=== PATIENT | male | born 1980 | race Caucasian/White ===

== ENCOUNTER → 2016-06-29 | Outpatient (CLI) | payer BC ==
--- NOTE | 2016-06-29 15:46 | CR ---
EXAMINATION: Right tibia and fibula HISTORY: Fracture COMPARISON: 05/20/2016 TECHNIQUE: 2 views FINDINGS/IMPRESSION: An intramedullary jarrod is noted fixating a distal tibia fracture, unchanged in p osition. There is also a stable mildly comminuted mid fibular fracture noted.
== END ==
LOC: MW.CHORTHO 07:47
PROVIDERS: ATTEND Orthopaedic Surgery
DX: S82.301A Unspecified fracture of lower end of right tibia, initial encounter for closed fracture (principal); S82.401A Unspecified fracture of shaft of right fibula, initial encounter for closed fracture; Z96.7 Presence of other bone and tendon implants
CPT/HCPCS: 73590-26-RT; 73590-RT

== ENCOUNTER → 2016-08-12 | Outpatient (CLI) | payer BC ==
--- NOTE | 2016-08-12 12:51 | CR ---
EXAMINATION: Right tibia and fibula HISTORY: Post procedural states COMPARISON: 06/29/2016 TECHNIQUE: 2 views FINDINGS/IMPRESSION: There is a healing distal tibial fracture secured by an intramedullary jarrod. The re is also a healing mildly comminuted nondisplaced mid fibular fracture identified. Overall the oss eous structures appear stable.
== END ==
LOC: MW.CHORTHO 07:34
PROVIDERS: ATTEND Orthopaedic Surgery
DX: Z98.890 Other specified postprocedural states (principal); S82.301D Unspecified fracture of lower end of right tibia, subsequent encounter for closed fracture with routine healing; S82.454D Nondisplaced comminuted fracture of shaft of right fibula, subsequent encounter for closed fracture with routine healing
CPT/HCPCS: 73590-26-RT; 73590-RT

== ENCOUNTER 2016-11-10 06:18 | Day surgery (SDC) | payer BC ==
[~2016-11-10 06:18] MED LIST: Lactated Ringers 1,000 ML IV SCH
[2016-11-10] MEDS ORDERED: Ondansetron 4 MG/2 ML SDV ONE (07:09)
[2016-11-10] MEDS ORDERED: Lidocaine 2% 5 ML SDV ONE (07:09)
[2016-11-10] MEDS ORDERED: Propofol 200 MG/20 ML SDV ONE (07:09)
[2016-11-10] MEDS ORDERED: fentaNYL 100 MCG/2 ML SDV ONE (07:09)
[2016-11-10] MEDS ORDERED: Midazolam 1 MG/ML 2 ML SDV ONE (07:10)
[2016-11-10] MEDS ORDERED: Bupivacaine 0.5% 10 ML SDV ONE (07:17)
[2016-11-10] MEDS ORDERED: Lidocaine 1% 20 ML MDV ONE (07:17)
--- NOTE | 2016-11-10 07:44 | PCM.PREANE ---
Preanesthetic Assessment - Anesthesia/Transfusion/Family Hx Anesthesia History: Prior Anesthesia Without Reaction Transfusion History: No Prior Transfusion(s) - Review of Systems General: No Symptoms Pulmonary: No Symptoms Cardiovascular: No Symptoms Gastrointestinal: No Symptoms Neurological: No Symptoms Other: Reports: None - Physical Assessment NPO Status Date: 11/09/16 NPO Status Time: 22:00 O2 Sat by Pulse Oximetry: 96 Respiratory Rate: 16 Vital Signs: Last Vital Signs Temp 96.8 F 11/10/16 06:58 Pulse 56 L 11/10/16 06:58 Resp 16 11/10/16 06:58 BP 127/78 11/10/16 06:58 Pulse Ox 96 11/10/16 06:58 Height: 5 ft 10 in Weight: 215 lb ASA Class: 1 Mental Status: Alert & Oriented x3 Airway Class: Mallampati = 2 Dentition: Reports: Normal Dentition Thyro-Mental Finger Breadths: 3 Mouth Opening Finger Breadths: 3 ROM/Head Extension: Full Lungs: Clear to Auscultation, Normal Respiratory Effort - Allergies Allergies/Adverse Reactions: Allergies Allergy/AdvReac Type Severity Reaction Status Date / Time No Known Allergies Allergy Verified 04/05/16 19:08 - Blood Blood Available: No Product(s) Available: None - Anesthesia Plan Free Text/Narrative:: GLMA - Acknowledgements Anesthesia Type Planned: General Anesthesia Pt an Appropriate Candidate for the Planned Anesthesia: Yes Alternatives and Risks of Anesthesia Discussed w Pt/Guardian: Yes Pt/Guardian Understands and Agrees with Anesthesia Plan: Yes PreAnesthesia Questionnaire - Past Health History Medical/Surgical History: Denies Medical/Surgical History Cardiovascular History: Reports: None Respiratory History: Reports: Other (See Below) Other Respiratory History: pneumonia 2015 Gastrointestinal History: Reports: GERD (controlled on medication) Musculoskeletal History: Reports: Fracture Other Musculoskeletal History: fx rt tib fib Psychiatric History: Reports: Anxiety - Infectious Disease History Infectious Disease History: Reports: Chicken Pox, Measles, Mumps - Past Surgical History Head Surgeries/Procedures: Reports: None HEENT Surgical History: Reports: Tonsillectomy Respiratory Surgical History: Reports: None Musculoskeletal Surgical History: Reports: Arthroscopic Knee, Shoulder Surgery, Other (See Below) Other Musculoskeletal Surgeries/Procedures:: right knee arthroscopic surgery, right shoulder surgery for torn tendon, surgery for fx rt tib fib - SUBSTANCE USE Smoking Status *Q: Never Smoker Second Hand Smoke Exposure: No Recreational Drug Use History: Yes Recreational Drug Type: - HOME MEDS Home Medications: Home Meds Omeprazole Magnesium [Prilosec Otc] 20 mg PO DAILY 04/05/16 [History] - CURRENT (IN HOUSE) MEDS Current Meds: Current Medications Hydrocodone Bitart/Acetaminophen ([place] 325-5 Mg) 1 - 2 tab PO Q4H PRN PRN Reason: Pain Lactated Ringer's (Ringers, Lactated) 1,000 mls @ 100 mls/hr IV ASDIRECTED [facility] Last Admin: 11/10/16 06:39 Dose: 100 mls/hr Cefazolin Sodium/Dextrose 2 gm (/ Premix) 50 mls @ 100 mls/hr IV ONCALL [facility] Discontinued Medications Bupivacaine HCl (Sensorcaine-Mpf 0.5%) Confirm Administered Dose 10 ml .ROUTE .STK-MED ONE Stop: 11/10/16 07:18 Fentanyl (Sublimaze) Confirm Administered Dose 100 mcg .ROUTE .STK-MED ONE Stop: 11/10/16 07:10 Lidocaine (Xylocaine-Mpf 2%) Confirm Administered Dose 5 ml .ROUTE .STK-MED ONE Stop: 11/10/16 07:10 Lidocaine HCl (Xylocaine 1%) Confirm Administered Dose 20 ml .ROUTE .STK-MED ONE Stop: 11/10/16 07:18 Midazolam HCl (Versed 1 Mg/Ml) Confirm Administered Dose 2 mg .ROUTE .STK-MED ONE Stop: 11/10/16 07:11 Ondansetron HCl (Zofran) Confirm Administered Dose 4 mg .ROUTE .STK-MED ONE Stop: 11/10/16 07:10 Propofol (Diprivan 20 Ml) Confirm Administered Dose 200 mg .ROUTE .STK-MED ONE Stop: 11/10/16 07:10
[2016-11-10] MEDS ORDERED: ceFAZolin 2 GM in Premix Bag 1 BAG IV SCH (08:00)
[2016-11-10] MEDS ORDERED: HYDROmorphone 2 MG/ML Syringe ONE (08:11)
[2016-11-10] MEDS ORDERED: Ketorolac 30 MG/ML SDV ONE (08:12)
[2016-11-10] MEDS ORDERED: Acetaminophen/HYDROcodone 325-5 MG Tab PO PRN (09:00)
--- NOTE | 2016-11-10 09:18 | PCM.OPNOTE ---
- General Post-Op/Procedure Note Date of Surgery/Procedure: 11/10/16 Operative Procedure(s): R knee arthroscopy with PMM and HWR R distal tibia Post-Op Diagnosis: R knee medial meniscus tear. R distal tibia painful retained HW Anesthesia Technique: General LMA Primary Surgeon: Emilie Whalen Marketing Regional Consultant: Rama Sanchez in mLs: 10 Condition: Good Free Text/Narrative:: #[id number]
[2016-11-10] MEDS: fentaNYL 100 MCG/2 ML SDV IVPUSH PRN ×2 (09:28→09:34)
--- NOTE | 2016-11-10 09:55 | PCM.POSTAN ---
POST ANESTHESIA ASSESSMENT - MENTAL STATUS Mental Status: Alert, Oriented - RESPIRATORY Respiratory Status: Respiratory Rate WNL, Airway Patent, O2 Saturation Stable - CARDIOVASCULAR CV Status: Pulse Rate WNL, Blood Pressure Stable - GASTROINTESTINAL GI Status: No Symptoms - POST OP HYDRATION Hydration Status: Adequate & Stable
--- NOTE | 2016-11-10 10:29 | OR ---
SURGEON: Emilie Whalen MD DATE OF PROCEDURE: 11/10/2016 PREOPERATIVE DIAGNOSES: 1. Right knee medial meniscus tear. 2. Painful retained hardware, right distal tibia. POSTOPERATIVE DIAGNOSES: 1. Right knee medial meniscus tear. 2. Painful retained hardware, right distal tibia. PROCEDURES: 1. Right knee arthroscopy with partial medial meniscectomy. 2. Hardware removal, right distal tibia x3 (deep implants). ADMINISTRATIVE SUPERVISOR: Rama Sanchez PA-C. ANESTHESIA: General. ESTIMATED BLOOD LOSS: 10 mL. COMPLICATIONS: None. DVT PROPHYLAXIS: None indicated. IMPLANTS USED: None. BRIEF HISTORY: Phong is a 36-year-old male, who has had complaint of progressive right knee pain following a right tibia fracture which was treated with intramedullary rodding of the tibia in April of 2016. He does have a history of previous right knee pain and has previously undergone a right knee arthroscopy with partial medial meniscectomy. He has also developed irritation along the distal interlocking screws on the distal tibia. Due to his lack of response to conservative treatment, I did recommend surgical intervention. Risks and goals of the procedure were discussed with the patient and were documented preoperatively. He agreed to proceed. Initially, we planned on taking out one of the distal interlocking screws, however, upon preoperative evaluation this morning he did complain of pain at all 3 distal interlocking screws sites due to their superficial location. His x-rays were reviewed which showed the distal tibia fracture to be well healed with intramedullary rodding good position. At that time, I recommended removal of all 3 distal interlocking screws. DESCRIPTION OF PROCEDURE: The patient was properly identified and brought to the operating room. He was transferred from the OR cart and placed on the operating room table in supine position. General anesthesia was administered. After adequate anesthesia was obtained, a well-padded tourniquet was applied to the right lower extremity. The right lower extremity was then prepped in standard fashion using ChloraPrep solution. It was then sterilely draped. A time-out was performed to ensure correct site and procedure. Preoperative antibiotics were given. The surgical sites had been marked preoperatively. An Esmarch was used to exsanguinate the right lower extremity and the tourniquet was inflated to 250 mmHg. A lateral portal arthrotomy was established. Blunt trocar and cannula were introduced into the suprapatellar pouch. Camera, inflow, and outflow were assembled. No significant synovitis or scarring was noted in the suprapatellar pouch. The patellofemoral joint was visualized. The patella appeared to track centrally. I then extended down the lateral and medial gutter. No loose bodies were identified. I then entered the medial compartment. A medial portal arthrotomy was established. A blunt probe was inserted. There was found to be an undersurface tear of the posterior horn of the medial meniscus. This was treated with a shaver and debrided. It was extensively probed and was found to be stable. There was some truncation of the posterior horn of the medial meniscus, presumably from his prior surgery. The medial tibial plateau articular surface appeared intact. I did note an approximately 5 mm x 5 mm area of grade 3 chondromalacia along the weightbearing surface of the lateral portion of the medial femoral condyle. Some of the cartilage appeared loose and this was treated with chondroplasty. It was again probed and the remainder of the cartilage was found to be stable. No subchondral bone was exposed. I then entered the notch. Both the ACL and PCL were visualized and probed and found to be intact. I then entered the lateral compartment. The meniscus appeared intact. It was extensively probed and found to be stable. There was a non full-thickness linear fissure along the posterior lateral aspect of the lateral tibial plateau. This was probed and found to be stable. No significant degenerative changes were noted along the lateral femoral condyle. I then re-entered the patellofemoral joint. He did have an abundant fat pad which appeared to be impinging within the patellofemoral joint. The portion of the fat pad was resected. No further impingement was noted with flexion and extension of the knee. There was a small area of chondromalacia along the central portion of the trochlear groove. This was probed and found to be intact. He also had a small area of grade 3 chondromalacia measuring less than 5 mm x 5 mm over the lateral facet of the patella. No unstable cartilage was noted. Instruments were then removed from the knee. The portal sites were closed with 3-0 nylon. Lidocaine 1% was injected along the portal tracts. We then turned our attention to the distal interlocking screws. An incision was made over the site of each of the palpable screws. The subcutaneous tissues were dissected and the screw was visualized and removed without difficulty. This was repeated 3 times. Wounds were then copiously irrigated with saline solution. The tourniquet was deflated. The distal interlocking screw incisions were closed with 3-0 nylon. Lidocaine 1% was also injected along the distal interlocking screw sites. Xeroform gauze was then placed over all the wounds and a bulky dressing was applied. He was awakened from his anesthetic and transferred back to the operating room cart. He was brought to recovery room in stable condition. All needle and sponge counts were correct. ALVARO / DEDRICK /[id number]
[2016-11-10 10:50] VITALS: BP 138/72
--- NOTE | 2016-11-10 11:58 | PCM48HPAN ---
Post Anesthesia Note - EVALUATION WITHIN 48HRS OF ANESTHETIC Vital Signs in Normal Range: Yes Patient Participated in Evaluation: Yes Respiratory Function Stable: Yes Airway Patent: Yes Cardiovascular Function Stable: Yes Hydration Status Stable: Yes Pain Control Satisfactory: Yes Nausea and Vomiting Control Satisfactory: Yes Mental Status Recovered: Yes - COMMENTS/OBSERVATIONS Free Text/Narrative:: To home with his .
--- NOTE | 2016-11-10 11:58 | CR ---
Procedural fluoroscopy 0.9 seconds of fluoroscopy time was employed for orthopedic hardware procedure. Impression: Procedural fluoroscopy as above
== END 2016-11-10 11:00 | disposition home or self-care (01) ==
LOC: MW.SDS 06:18
PROVIDERS: ATTEND Orthopaedic Surgery
DX: Z47.2 Encounter for removal of internal fixation device (principal); M23.221 Derangement of posterior horn of medial meniscus due to old tear or injury, right knee
CPT/HCPCS: 20680; 29881; 76000; A9270; J1170; J1885; J2250; J2405; J3010; J7120; 01400; 88304; J2704

== ENCOUNTER 2020-01-15 10:05 | Day surgery (SDC) | payer BC ==
[~2020-01-15 10:05] MED LIST changes: +Sodium Chloride 0.9% 10 ML SDV IV PRN; +Sodium Chloride 0.9% 10 ML Syringe FLUSH PRN; +Sodium Chloride 0.9% 2.5 ML Syringe FLUSH PRN
[2020-01-15] MEDS ORDERED: Propofol 200 MG/20 ML SDV ONE ×3 (10:22→11:09)
[2020-01-15] MEDS ORDERED: fentaNYL 100 MCG/2 ML SDV ONE ×2 (10:22→10:42)
[2020-01-15] MEDS ORDERED: Midazolam 1 MG/ML 2 ML SDV ONE ×2 (10:22→10:42)
[2020-01-15] MEDS ORDERED: Lidocaine 2% 5 ML SDV ONE ×2 (10:22→10:44)
--- NOTE | 2020-01-15 10:33 | PCM.PREANE ---
Preanesthetic Assessment - Anesthesia/Transfusion/Family Hx Anesthesia History: Prior Anesthesia Without Reaction Family History of Anesthesia Reaction: No Transfusion History: No Prior Transfusion(s) Intubation History: Unknown - Review of Systems General: No Symptoms Pulmonary: No Symptoms Cardiovascular: No Symptoms Gastrointestinal: Hematochezia, Other (GERD) Neurological: No Symptoms Other: Reports: None - Physical Assessment Height: 5 ft 10 in Weight: 99.337 kg ASA Class: 2 Mental Status: Alert & Oriented x3 Airway Class: Mallampati = 1 Dentition: Reports: Normal Dentition, Implants (x1 rt. lower (back)) Thyro-Mental Finger Breadths: 3 Mouth Opening Finger Breadths: 3 ROM/Head Extension: Full Lungs: Clear to Auscultation, Normal Respiratory Effort Cardiovascular: Regular Rate, Regular Rhythm - Allergies Allergies/Adverse Reactions: Allergies Allergy/AdvReac Type Severity Reaction Status Date / Time erythromycin base Allergy Acid Reflux Verified 01/15/20 10:23 - Blood Blood Available: No - Anesthesia Plan Pre-Op Medication Ordered: None - Acknowledgements Anesthesia Type Planned: MAC Pt an Appropriate Candidate for the Planned Anesthesia: Yes Alternatives and Risks of Anesthesia Discussed w Pt/Guardian: Yes Pt/Guardian Understands and Agrees with Anesthesia Plan: Yes PreAnesthesia Questionnaire - Past Health History Medical/Surgical History: Denies Medical/Surgical History HEENT History: Reports: None Cardiovascular History: Reports: None Respiratory History: Reports: None Gastrointestinal History: Reports: GERD Other Gastrointestinal History: alternating constipation & diarrhea Genitourinary History: Reports: None Musculoskeletal History: Reports: Fracture Other Musculoskeletal History: fx rt tib fib Neurological History: Reports: None Psychiatric History: Reports: None, Other (See Below) (h/o anxietu/depression) Endocrine/Metabolic History: Reports: Obesity/BMI 30+ (BMI 31.4) Hematologic History: Reports: None Immunologic History: Reports: None Oncologic (Cancer) History: Reports: None Dermatologic History: Reports: None - Infectious Disease History Infectious Disease History: Reports: Chicken Pox, Measles, Mumps - Past Surgical History Head Surgeries/Procedures: Reports: None HEENT Surgical History: Reports: Tonsillectomy Cardiovascular Surgical History: Reports: None Respiratory Surgical History: Reports: None GI Surgical History: Reports: None Male Surgical History: Reports: None Endocrine Surgical History: Reports: None Neurological Surgical History: Reports: None Musculoskeletal Surgical History: Reports: Arthroscopic Knee, ORIF, Shoulder Surgery, Other (See Below) Other Musculoskeletal Surgeries/Procedures:: right knee arthroscopy with meniscus repair, right shoulder surgery for torn tendon, surgery for fx rt tib fib (ORIF with later painfull hardware removal) Oncologic Surgical History: Reports: None Dermatological Surgical History: Reports: None - SUBSTANCE USE Tobacco Use Status *Q: Never Tobacco User - HOME MEDS Home Medications: Home Meds Omeprazole Magnesium [Prilosec Otc] 20 mg PO DAILY 04/05/16 [History] Hydrocortisone/Pramoxine [Proctofoam-Hc 1%-1% Foam] 1 applic RECTAL ASDIRECTED PRN 01/10/20 [History] - CURRENT (IN HOUSE) MEDS Current Meds: Current Medications Lactated Ringer's (Ringers, Lactated) 1,000 mls @ 125 mls/hr IV ASDIRECTED [facility] Sodium Chloride (Saline Flush) 10 ml FLUSH ASDIRECTED PRN PRN Reason: Keep Vein Open Sodium Chloride (Saline Flush) 2.5 ml FLUSH ASDIRECTED PRN PRN Reason: Keep Vein Open Sodium Chloride (Saline Flush) 10 ml FLUSH ASDIRECTED PRN PRN Reason: Keep Vein Open Sodium Chloride (Saline Flush) 2.5 ml FLUSH ASDIRECTED PRN PRN Reason: Keep Vein Open Sodium Chloride (Normal Saline) 10 ml IV ASDIRECTED PRN PRN Reason: IV Use Discontinued Medications Fentanyl (Sublimaze) Confirm Administered Dose 100 mcg .ROUTE .STK-MED ONE Stop: 01/15/20 10:23 Lidocaine (Xylocaine-Mpf 2%) Confirm Administered Dose 5 ml .ROUTE .STK-MED ONE Stop: 01/15/20 10:23 Midazolam HCl (Versed 1 Mg/Ml) Confirm Administered Dose 2 mg .ROUTE .STK-MED ONE Stop: 01/15/20 10:23 Propofol (Diprivan 20 Ml) Confirm Administered Dose 400 mg .ROUTE .STK-MED ONE Stop: 01/15/20 10:23
[2020-01-15] MEDS ORDERED: Glycopyrrolate 0.2 MG/ML SDV ONE (10:55)
[2020-01-15] MEDS ORDERED: Ondansetron 4 MG/2 ML SDV ONE (11:08)
--- NOTE | 2020-01-15 11:30 | PCM.OPNOTE ---
- General Post-Op/Procedure Note Date of Surgery/Procedure: 01/15/20 Operative Procedure(s): Diagnostic EGD. Diagnostic colonoscopy. Findings: Hyperplastic gastric polyp, GERD, gastric lesion, ascending colon polyp x1 and transverse colon polyp x1. Pre Op Diagnosis: Chronic GERD. Change in bowel habits. Perianal pain. Post-Op Diagnosis: Hyperplastic gastric polyp, GERD, gastric lesion, ascending colon polyp and transverse colon polyp. Anesthesia Technique: [facility] Primary Surgeon: Theodora Keen Complications: None. Condition: Stable
--- NOTE | 2020-01-15 11:50 | PCM.POSTAN ---
POST ANESTHESIA ASSESSMENT - MENTAL STATUS Mental Status: Alert, Oriented - VITAL SIGNS Vital Signs: Last Vital Signs Temp 37 C 01/15/20 11:27 Pulse 59 L 01/15/20 11:47 Resp 16 01/15/20 11:47 BP 118/65 01/15/20 11:47 Pulse Ox 93 L 01/15/20 11:47 - RESPIRATORY Respiratory Status: Respiratory Rate WNL, Airway Patent, O2 Saturation Stable - CARDIOVASCULAR CV Status: Pulse Rate WNL, Blood Pressure Stable - GASTROINTESTINAL GI Status: No Symptoms - PAIN Pain Score: 0 - POST OP HYDRATION Hydration Status: Adequate & Stable - OBSERVATIONS Free Text/Narrative:: No anesthesia problems
--- NOTE | 2020-01-15 12:18 | PCM48HPAN ---
Post Anesthesia Note - EVALUATION WITHIN 48HRS OF ANESTHETIC Vital Signs in Normal Range: Yes Patient Participated in Evaluation: Yes Respiratory Function Stable: Yes Airway Patent: Yes Cardiovascular Function Stable: Yes Hydration Status Stable: Yes Pain Control Satisfactory: Yes Nausea and Vomiting Control Satisfactory: Yes Mental Status Recovered: Yes Vital Signs: Last Vital Signs Temp 37 C 01/15/20 11:27 Pulse 59 L 01/15/20 11:47 Resp 16 01/15/20 11:47 BP 118/65 01/15/20 11:47 Pulse Ox 93 L 01/15/20 11:47 - COMMENTS/OBSERVATIONS Free Text/Narrative:: No anesthesia problems
[2020-01-15 13:51] VITALS: BP 126/75; PULSE 53
--- NOTE | 2020-01-15 18:29 | OR ---
SURGEON: THEODORA KEEN MD DATE OF PROCEDURE: 01/15/2020 PREOPERATIVE DIAGNOSES: Change in bowel habits, chronic gastroesophageal reflux disease, perianal pain. POSTOPERATIVE DIAGNOSES: 1. Hyperplastic gastric polyp. 2. Gastric lesion. 3. Gastroesophageal reflux disease. 4. Ascending colon polyp. 5. Transverse colon polyp. PROCEDURE PERFORMED: Diagnostic esophagogastroduodenoscopy and colonoscopy. PRIMARY SURGEON: Theodora Keen MD ANESTHESIA: MAC. INSTRUMENT USED: Olympus endoscope and colonoscope. EXTENT OF EXAM: To the second portion of duodenum, to the cecum. PREPARATION: Good. LIMITATIONS: None. INDICATIONS FOR EXAMINATION: The patient is a 39-year-old male who presented to clinic with the main complaint of perianal pain. Upon further questioning, the patient also had problems with chronic GERD as well as changes in his bowel habits. The decision was made to proceed with diagnostic EGD and colonoscopy. I explained the procedure, expected perioperative course, and risks. He verbalized understanding and wishes to proceed. PROCEDURE IN DETAIL: The patient was brought into the endoscopy suite and placed in the left lateral decubitus position. A time-out was completed verifying the patient's name, age, date of , allergies, and procedure to be performed. A bite block was placed in the patient's mouth. Monitored anesthesia care was induced and continuous oxygen was provided via nasal cannula throughout the procedure. After adequate sedation was achieved, a well-lubricated endoscope was placed in the patient's mouth and advanced under direct visualization to the level of the second portion of duodenum. This appeared normal and a photograph was taken. The scope was then fully withdrawn while examining the color, texture, anatomy, and integrity of the mucosa of the upper GI tract. The duodenal mucosa appeared normal. A biopsy was taken of the duodenal bulb and sent to pathology. The scope was brought into the stomach and a photograph was taken of the pylorus and GE junction. The patient appeared to have a small diverticulum or fold of the gastric mucosa close to the pylorus. Multiple photographs of this were taken. The GE junction appeared normal. The gastric mucosa showed no signs of inflammation or gross ulceration. The patient did have some scattered hyperplastic polyps in the body of the stomach. Biopsies were taken of the gastric antrum, body, and fundus and sent for histologic review and H. pylori testing. The scope was brought into the distal esophagus and a photograph of the Z-line was taken. The Z-line appeared slightly irregular. The patient refluxed gastric contents actively during this portion of the procedure. A biopsy was taken 1 cm above the Z-line and sent to pathology for histologic review. The remainder of the esophagus appeared normal. The scope was removed and this portion of procedure terminated. A digital rectal exam was performed. This exam was within normal limits. A well-lubricated colonoscope was inserted in the rectum and advanced under direct visualization to the level of the cecum. The cecum was identified by both visual and anatomic landmarks. A photograph was taken of the cecal cap. The scope was then fully withdrawn while examining the color, texture, anatomy, and integrity of the mucosa from the cecum to the anal canal. The terminal ileum appeared normal with no evidence of inflammation. In the midportion of the ascending colon, the patient was noted to have a small sessile polyp. This was removed in a piecemeal fashion using cold biopsy forceps. A similar-appearing polyp was found in the mid transverse colon. It was removed with cold biopsy forceps and sent to pathology, labeled as transverse colon polyp. The remainder of the colon appeared normal. The scope was brought into the rectum and retroflexed to allow visualization of the anal canal opening. This appeared normal and a photograph was taken. The scope was then straightened out and fully withdrawn. The cecum to anus time was greater than 6 minutes. I closely inspected the anoderm and the area of previous excoriation along the buttocks crease. The patient had a barrier cream over the area and the excoriation appeared to be resolved. The patient was awoken and taken to PACU in stable condition. All counts were complete and correct at the end of the case. ENDOSCOPIC DIAGNOSES: 1. Hyperplastic gastric polyp. 2. Gastric lesion. 3. Gastroesophageal reflux disease. 4. Ascending colon polyp. 5. Transverse colon polyp. RECOMMENDATIONS: Follow up in clinic in 2 weeks. ALIN TSE /[id number]
== END 2020-01-15 12:25 | disposition home or self-care (01) ==
LOC: MW.SDS 10:05
PROVIDERS: ATTEND Surgery
DX: D12.2 Benign neoplasm of ascending colon (principal); D12.3 Benign neoplasm of transverse colon; K21.9 Gastro-esophageal reflux disease without esophagitis; K31.7 Polyp of stomach and duodenum; L29.0 Pruritus ani; L98.8 Other specified disorders of the skin and subcutaneous tissue; E66.9 Obesity, unspecified; Z88.1 Allergy status to other antibiotic agents; Z68.31 Body mass index [BMI] 31.0-31.9, adult; Z79.899 Other long term (current) drug therapy; Z98.890 Other specified postprocedural states
CPT/HCPCS: 43239; 45380; 88305; 88312; J2001; J2250; J2405; J2704; J3010; J3490; J7120

== ENCOUNTER 2021-01-27 11:36 | Day surgery (SDC) | payer BC, MEDICAID ==
--- NOTE | 2021-01-27 12:34 | PCM.PREANE ---
Preanesthetic Assessment - Procedure Proposed Procedure: Colonoscopy - Anesthesia/Transfusion/Family Hx Anesthesia History: Prior Anesthesia Without Reaction Family History of Anesthesia Reaction: No Transfusion History: No Prior Transfusion(s) Intubation History: Unknown - Review of Systems General: No Symptoms Pulmonary: No Symptoms Cardiovascular: No Symptoms Gastrointestinal: No Symptoms (GERD well controlled) Neurological: No Symptoms Other: Reports: None - Physical Assessment NPO Status Date: 01/25/21 NPO Status Time: 21:00 (Solids, >8 hr Liq) Vital Signs: Last Vital Signs Temp 97.3 F 01/27/21 12:13 Pulse 47 L 01/27/21 12:13 Resp 16 01/27/21 12:13 BP 139/79 01/27/21 12:13 Pulse Ox 98 01/27/21 12:13 Height: 5 ft 10 in Weight: 92.986 kg ASA Class: 2 Mental Status: Alert & Oriented x3 Airway Class: Mallampati = 3 Dentition: Reports: Normal Dentition Thyro-Mental Finger Breadths: 3 Mouth Opening Finger Breadths: 3 ROM/Head Extension: Full Lungs: Clear to Auscultation, Normal Respiratory Effort Cardiovascular: Regular Rate, Regular Rhythm - Allergies Allergies/Adverse Reactions: Allergies Allergy/AdvReac Type Severity Reaction Status Date / Time No Known Allergies Allergy Verified 01/21/21 11:14 - Acknowledgements Anesthesia Type Planned: General Anesthesia Pt an Appropriate Candidate for the Planned Anesthesia: Yes Alternatives and Risks of Anesthesia Discussed w Pt/Guardian: Yes Pt/Guardian Understands and Agrees with Anesthesia Plan: Yes PreAnesthesia Questionnaire - Past Health History Medical/Surgical History: Denies Medical/Surgical History HEENT History: Reports: None Cardiovascular History: Reports: None Respiratory History: Reports: None Gastrointestinal History: Reports: Colon Polyp, GERD Genitourinary History: Reports: None Musculoskeletal History: Reports: Fracture Other Musculoskeletal History: fx rt tib fib Neurological History: Reports: None Psychiatric History: Reports: None, Other (See Below) Endocrine/Metabolic History: Reports: None Hematologic History: Reports: None Immunologic History: Reports: None Oncologic (Cancer) History: Reports: None Dermatologic History: Reports: None - Infectious Disease History Infectious Disease History: Reports: Chicken Pox, Measles, Mumps - Past Surgical History Head Surgeries/Procedures: Reports: None HEENT Surgical History: Reports: Tonsillectomy Cardiovascular Surgical History: Reports: None Respiratory Surgical History: Reports: None GI Surgical History: Reports: Colonoscopy, EGD Male Surgical History: Reports: None Endocrine Surgical History: Reports: None Neurological Surgical History: Reports: None Musculoskeletal Surgical History: Reports: Arthroscopic Knee, ORIF, Shoulder Surgery, Other (See Below) Other Musculoskeletal Surgeries/Procedures:: right knee arthroscopy with meniscus repair, right shoulder surgery for torn tendon, ORIF for fx rt tib fib, hardware removal to right ankle Oncologic Surgical History: Reports: None Dermatological Surgical History: Reports: None - SUBSTANCE USE Tobacco Use Status *Q: Never Tobacco User - HOME MEDS Home Medications: Home Meds Omeprazole Magnesium [Prilosec Otc] 20 mg PO DAILY 04/05/16 [History] buPROPion HCL [Bupropion HCl Sr] 150 mg PO DAILY 01/21/21 [History] - CURRENT (IN HOUSE) MEDS Current Meds: Current Medications Lactated Ringer's (Ringers, Lactated) 1,000 mls @ 125 mls/hr IV ASDIRECTED ROCHELLE Last Admin: 01/27/21 12:18 Dose: 125 mls/hr Documented by: Sodium Chloride (Sodium Chloride 0.9% 10 Ml Syringe) 10 ml FLUSH ASDIRECTED PRN PRN Reason: Keep Vein Open Sodium Chloride (Sodium Chloride 0.9% 2.5 Ml Syringe) 2.5 ml FLUSH ASDIRECTED PRN PRN Reason: Keep Vein Open Sodium Chloride (Sodium Chloride 0.9% 10 Ml Syringe) 10 ml FLUSH ASDIRECTED PRN PRN Reason: Keep Vein Open Sodium Chloride (Sodium Chloride 0.9% 2.5 Ml Syringe) 2.5 ml FLUSH ASDIRECTED PRN PRN Reason: Keep Vein Open Sodium Chloride (Sodium Chloride 0.9% 10 Ml Sdv) 10 ml IV ASDIRECTED PRN PRN Reason: IV Use
[2021-01-27] MEDS ORDERED: Propofol 200 MG/20 ML SDV ONE (13:41)
[2021-01-27] MEDS ORDERED: fentaNYL 100 MCG/2 ML SDV ONE (13:41)
--- NOTE | 2021-01-27 14:35 | PCM.POSTAN ---
POST ANESTHESIA ASSESSMENT - MENTAL STATUS Mental Status: Alert, Oriented - VITAL SIGNS Vital Signs: Last Vital Signs Temp 97.3 F 01/27/21 12:13 Pulse 47 L 01/27/21 12:13 Resp 16 01/27/21 12:13 BP 139/79 01/27/21 12:13 Pulse Ox 98 01/27/21 12:13 - RESPIRATORY Respiratory Status: Respiratory Rate WNL, Airway Patent, O2 Saturation Stable - CARDIOVASCULAR CV Status: Pulse Rate WNL, Blood Pressure Stable - GASTROINTESTINAL GI Status: No Symptoms - PAIN Pain Score: 0 - POST OP HYDRATION Hydration Status: Adequate & Stable
--- NOTE | 2021-01-27 14:46 | PCM48HPAN ---
Post Anesthesia Note - EVALUATION WITHIN 48HRS OF ANESTHETIC Vital Signs in Normal Range: Yes Patient Participated in Evaluation: Yes Respiratory Function Stable: Yes Airway Patent: Yes Cardiovascular Function Stable: Yes Hydration Status Stable: Yes Pain Control Satisfactory: Yes Nausea and Vomiting Control Satisfactory: Yes Mental Status Recovered: Yes Vital Signs: Last Vital Signs Temp 97.2 F 01/27/21 14:30 Pulse 53 L 01/27/21 14:40 Resp 11 L 01/27/21 14:40 BP 109/55 L 01/27/21 14:40 Pulse Ox 96 01/27/21 14:40 - COMMENTS/OBSERVATIONS Free Text/Narrative:: Pt doing well post-op. VSS. No apparent anesthetic complications. Dr. Jc Waddell
--- NOTE | 2021-01-27 15:13 | PCM.OPNOTE ---
- General Post-Op/Procedure Note Date of Surgery/Procedure: 01/27/21 Operative Procedure(s): Diagnostic colonoscopy Findings: Normal colonoscopy Pre Op Diagnosis: History of colon polyps Post-Op Diagnosis: Normal colonoscopy Anesthesia Technique: MAC Primary Surgeon: Theodora Keen Condition: Good Free Text/Narrative:: Intake & Output 01/27/21 01/27/21 01/27/21 06:59 14:59 22:59 Intake Total 600 Balance 600
[2021-01-27 15:20] VITALS: BP 116/67; PULSE 56
--- NOTE | 2021-01-28 18:49 | OR ---
SURGEON: THEODORA KEEN MD DATE OF PROCEDURE: 01/27/2021 PREOPERATIVE DIAGNOSIS: History of colon polyps. POSTOPERATIVE DIAGNOSIS: History of colon polyps. PROCEDURE PERFORMED: Screening colonoscopy. PRIMARY SURGEON: Theodora Keen MD ANESTHESIA: MAC. INSTRUMENT USED: Olympus colonoscope. EXTENT OF EXAM: To the cecum. PREPARATION: Good. LIMITATIONS: None. INDICATIONS FOR EXAMINATION: The patient is a 40-year-old male who last year underwent a diagnostic colonoscopy. At the time, he was found to have two large polyps in his colon. Given the advanced nature of these polyps and their size, the decision was made to proceed with a repeat one-year colonoscopy. I explained the procedure, expected perioperative course, and the risks. The patient verbalized understanding and wishes to proceed. PROCEDURE IN DETAIL: The patient was brought in to the endoscopy suite and placed in a left lateral decubitus position. A time-out was completed verifying the patient's name, age, date of , allergies, and procedure to be performed. Monitored anesthesia care was induced and continuous oxygen was provided via nasal cannula throughout the procedure. After adequate sedation was achieved, a digital rectal exam was performed. This exam was within normal limits. A well-lubricated colonoscope was inserted into the rectum and advanced under direct visualization to the level of the cecum. The cecum was identified by both visual and anatomic landmarks. A photograph was taken of the cecal cap as well as with the scope retroflexed within the cecum. The scope was then fully withdrawn while examining the color, texture, anatomy, and integrity of the mucosa from the cecum to the anal canal. The findings were consistent with normal colonic mucosa. The scope was then brought into the rectum and retroflexed to allow visualization of the anal canal opening. This appeared normal and a photograph was taken. The scope was then straightened out and fully withdrawn. The cecum to anus time was 8 minutes. The patient tolerated the procedure well and was transferred to the PACU in stable condition. ENDOSCOPIC DIAGNOSIS: History of colon polyps. RECOMMENDATION: Follow up in clinic in five years for repeat colonoscopy. ALIN TSE /[id number]
== END 2021-01-27 15:12 | disposition home or self-care (01) ==
LOC: MW.SDS 11:36
PROVIDERS: ATTEND Surgery
DX: Z12.11 Encounter for screening for malignant neoplasm of colon (principal); K21.9 Gastro-esophageal reflux disease without esophagitis; Z86.010 Personal history of colon polyps; Z79.899 Other long term (current) drug therapy; Z98.890 Other specified postprocedural states
CPT/HCPCS: 45378; J2704; J3010; J7120; 00811